=== PATIENT | female | born 1950 | race Caucasian/White ===

== ENCOUNTER 2016-08-08 08:35 | Outpatient (CLI) | payer MEDICARE, OTHER | END 2016-08-08 08:36 | disposition home or self-care (01) | DX: M79.652 Pain in left thigh (principal); M25.562 Pain in left knee ==

== ENCOUNTER 2017-03-05 10:09 | Outpatient (CLI) | payer MEDICARE, OTHER ==
--- NOTE | 2017-03-06 14:34 | Mammography Report ---
DIGITAL SCREENING MAMMOGRAM: 03/05/2017 CLINICAL INDICATION: A 66-year-old, for screening. COMPARISON: 09/2015, 08/2014, 01/2013, 11/2011, 11/2010, 08/2009. TECHNIQUE: Routine CC and MLO projections were obtained of the breasts. FINDINGS: The breasts again demonstrate scattered fibroglandular densities bilaterally. Punctate, ty pically benign calcifications are present. No suspicious masses, clustered microcalcifications, or re gions of architectural distortion are identified. IMPRESSION: BENIGN FINDINGS. RECOMMENDATION: ROUTINE ANNUAL SCREENING UNLESS OTHERWISE CLINICALLY INDICATED. BIRADS CATEGORY 2-BENIGN FINDINGS. STANDARD QUALIFYING STATEMENTS 1. This examination was reviewed with the aid of Computer-Aided Detection (CAD). 2. A negative or benign imaging report should not delay biopsy if clinically suspicious findings are present. Consider surgical consultation if warranted. More than 5% of cancers are not identified by i maging. 3. Dense breasts may obscure an underlying neoplasm. JOB #: [id number] EXT JOB #:[id number]
== END 2017-03-05 10:10 | disposition home or self-care (01) ==
LOC: DI 10:09
PROVIDERS: ATTEND Internal Medicine
DX: Z12.31 Encounter for screening mammogram for malignant neoplasm of breast (principal)
CPT/HCPCS: 77067

== ENCOUNTER 2017-12-05 09:47 | Outpatient (CLI) | payer MEDICARE, OTHER ==
[2017-12-05] MEDS ORDERED: IOPAMIDOL-300 100 ML VIAL ONE (10:16)
[2017-12-05] MEDS ORDERED: IOPAMIDOL-300 50 ML VIAL ONE (10:16)
[2017-12-05 10:27] LABS: CREATININE 0.9 mg/dL (0.4-1.0)
[2017-12-05] MEDS ORDERED: IOPAMIDOL-300 100 ML VIAL IVP ONE (15:17)
[2017-12-05] MEDS ORDERED: IOPAMIDOL-300 50 ML VIAL PO ONE (15:17)
--- NOTE | 2017-12-05 15:47 | CT Report ---
Procedure Date: 12/05/2017 Accession Number: [id number] / [id number] Procedure: CT - Abdomen/Pelvis W/ CPT Code: FULL RESULT: EXAM: CT ABDOMEN AND PELVIS EXAM DATE: 12/05/2017 11:24 AM. CLINICAL HISTORY: ABDOMINAL WALL HERNIA. COMPARISONS: 04/09/2012. TECHNIQUE: Routine helical CT imaging was performed through the abdomen and pelvis. IV contrast: ISOVUE 300 100mL. Enteric contrast: No. Reconstructions: Coronal and sagittal. In accordance with CT protocol optimization, one or more of the following dose reduction techniques were utilized for this exam: automated exposure control, adjustment of mA and/or KV based on patient size, or use of iterative reconstructive technique. FINDINGS: Lung Bases: Unremarkable. Liver: Normal. No masses. Gallbladder/Bile Ducts: Unremarkable. Spleen: Normal. Pancreas: Normal. Adrenal Glands: Normal. Kidneys: No hydronephrosis. Tiny hypoattenuating subcentimeter lesion in the right lower pole which is too small to characterize, but likely represents a cyst. Peritoneal Cavity/Bowel: Bowel has normal caliber. There is diverticulosis of the sigmoid colon without evidence of diverticulitis. The appendix is not visualized. Pelvic Organs: Normal. The bladder and visualized pelvic organs are within normal limits. Vasculature: No aneurysms or other significant abnormality. Bones: No significant abnormality. Other: There is a tiny fat-containing umbilical hernia which is unchanged from the prior exam. No bowel herniation is seen. IMPRESSION: 1. No evidence of acute abdominal or pelvic process. 2. Very tiny fat-containing umbilical hernia unchanged from 2012. No bowel involvement. 3. Sigmoid colonic diverticulosis without evidence of diverticulitis. RADIA
== END 2017-12-05 09:48 | disposition home or self-care (01) ==
LOC: LAB 09:47 → DI 09:48
PROVIDERS: ATTEND Surgery
DX: K42.9 Umbilical hernia without obstruction or gangrene (principal); K57.30 Diverticulosis of large intestine without perforation or abscess without bleeding
CPT/HCPCS: 36415; 74177; 82565; 84520; Q9967

== ENCOUNTER 2018-10-20 09:47 | Outpatient (CLI) | payer MEDICARE, OTHER ==
--- NOTE | 2018-10-20 11:16 | Mammography Report ---
Reason: SCREENING MAMMO Procedure Date: 10/20/2018 Accession Number: [id number] / [id number] Procedure: VANESSA - Screening Mammo w/Abdulkadir CPT Code: FULL RESULT: EXAM: Screening Mammo w/Abdulkadir DATE: 10/20/2018 10:19 AM CLINICAL HISTORY: Routine screening TECHNIQUE: (B) - Bilateral CC and MLO views were obtained. COMPARISON: 03/05/2017, 10/20/2015, 08/26/2014 and 02/19/2013 PARENCHYMAL PATTERN: (F) - The breasts demonstrate diffuse fatty replacement bilaterally. FINDINGS: No significant interval change. There are no suspicious masses, calcifications, or areas of distortion. A few benign-appearing calcifications are present. IMPRESSION: Negative examination. BI-RADS category 1. RECOMMENDATION: (ANNUAL) - Recommend routine annual screening mammography. BI-RADS CATEGORY: (1) - Negative. STANDARD QUALIFYING STATEMENTS: 1. This examination was not reviewed with the aid of Computer-Aided Detection (CAD). 2. A negative or benign imaging report should not preclude biopsy if clinically suspicious findings are present. 3. Dense breasts may obscure an underlying neoplasm. 4. This examination was reviewed with the aid of 3D breast imaging (tomosynthesis).
== END 2018-10-20 09:48 | disposition home or self-care (01) ==
LOC: DI 09:47
DX: Z12.31 Encounter for screening mammogram for malignant neoplasm of breast (principal)
CPT/HCPCS: 77063; 77067

== ENCOUNTER 2019-04-03 10:02 | Outpatient (CLI) | payer MEDICARE, OTHER ==
[2019-04-03 10:18] LABS: BASOPHILS # (AUTO) 0.1 10^3/uL (0.0-0.1); BASOPHILS % (AUTO) 1.3 %; EOSINOPHILS # (AUTO) 0.3 10^3/uL (0.0-0.7); HGB - HEMOGLOBIN 13.2 g/dL (12.0-16.0); LYMPHOCYTES # (AUTO) 2.5 10^3/uL (1.5-3.5); LYMPHOCYTES % (AUTO) 34.6 %; MEAN CORPUSCULAR HEMOGLOBIN 29.7 pg (27.0-31.0); MEAN PLATELET VOLUME 9.5 fL (7.9-10.8); MONOCYTES # (AUTO) 0.4 10^3/uL (0.0-1.0); NEUTROPHILS # (AUTO) 3.9 10^3/uL (1.5-6.6); PLT - PLATELET COUNT 275 10^3/uL (130-450); RED BLOOD COUNT 4.44 10^6/uL (4.20-5.40); RED CELL DISTRIBUTION WIDTH 15.4 % (12.0-15.0); WHITE BLOOD COUNT 7.2 x10^3/uL (4.8-10.8)
[2019-04-03 10:36] LABS: ALBUMIN 4.1 g/dL (3.2-5.5); ALBUMIN/GLOBULIN RATIO 1.2 (1.0-2.2); ALKALINE PHOSPHATASE 76 IU/L (42-121); ALT ALANINE AMINOTRANSFERASE 22 IU/L (10-60); AST ASPARTATE AMINOTRANSFERASE 25 IU/L (10-42); BILIRUBIN,TOTAL 0.6 mg/dL (0.2-1.0); BUN - BLOOD UREA NITROGEN 19 mg/dL (6-20); CALCIUM 9.1 mg/dL (8.5-10.3); CARBON DIOXIDE - CO2 29 mmol/L (21-32); CHLORIDE 102 mmol/L (101-111); CHOL/HDL RATIO 3.5 (<4.4); CHOLESTEROL 194 mg/dL; CREATININE 0.9 mg/dL (0.4-1.0); CRP HIGH SENSITIVITY 9.5 mg/L; GFR - MDRD 62 (>89); GLUCOSE 99 mg/dL (70-100); HDL CHOLESTEROL 55 mg/dL; LDL CHOLESTEROL,CALCULATED 126 mg/dL; LDL/HDL RATIO 2.3 (<4.4); SODIUM 138 mmol/L (135-145); TOTAL PROTEIN 7.6 g/dL (6.7-8.2); VLDL CHOLESTEROL 13 mg/dL
[2019-04-03 11:08] LABS: BILIRUBIN,URINE NEGATIVE (NEGATIVE); GLUCOSE, URINE (UA) NEGATIVE (NEGATIVE); KETONES,URINE (UA) NEGATIVE (NEGATIVE); LEUKOCYTE ESTERASE, URINE NEGATIVE (NEGATIVE); NITRITE,URINE NEGATIVE (NEGATIVE); OCCULT BLOOD,URINE NEGATIVE (NEGATIVE); PROTEIN,URINE NEGATIVE (NEGATIVE); UROBILINOGEN,URINE 0.2 (NORMAL) E.U./dL (NORMAL)
[2019-04-03 11:13] LABS: CLARITY,URINE CLEAR (CLEAR)
== END 2019-04-03 10:03 | disposition home or self-care (01) ==
LOC: LAB 10:02
PROVIDERS: ATTEND Internal Medicine
DX: Z13.6 Encounter for screening for cardiovascular disorders (principal); Z79.899 Other long term (current) drug therapy; R31.9 Hematuria, unspecified; E78.5 Hyperlipidemia, unspecified; M81.0 Age-related osteoporosis without current pathological fracture
CPT/HCPCS: 36415; 80053; 80061; 81001; 81003; 82306; 83721; 84443; 85025; 86141; 87086

== ENCOUNTER 2020-12-15 09:31 | Outpatient (CLI) | payer MEDICARE, OTHER ==
--- NOTE | 2020-12-16 13:38 | Mammography Report ---
BILATERAL DIGITAL SCREENING MAMMOGRAM 3D/2D: 12/15/2020 CLINICAL: Routine screening. Comparison is made to exams dated: 10/20/2018 mammogram, 03/05/2017 mammogram, 10/20/2015 mammogram, mammogram, 12/04/2011 mammogram, and 12/11/2010 mammogram - [facility]. The tissue of both breasts is predominantly fatty. No significant masses, calcifications, or other findings are seen in either breast. There has been no significant interval change. IMPRESSION: NEGATIVE There is no mammographic evidence of malignancy. A 1 year screening mammogram is recommended. This exam was interpreted at Station ID: [id number]. NOTE: For mammograms, a report in lay terms will be sent to the patient. Approximately 15% of breast malignancies will not be visualized mammographically. In the management of a palpable breast mass, a negative mammogram must not discourage biopsy of a clinically suspicious lesion. Electronically Signed By: Seymour bush/nai:12/15/2020 15:16:12 ACR BI-RADS Category 1: Negative 3341F PARENCHYMAL PATTERN: (F) - The breast(s) demonstrate(s) diffuse fatty replacement. BI-RADS CATEGORY: (1) - 1 RECOMMENDATION: (ANNUAL) - Recommend routine annual screening mammography. [id number] 1 year screening LATERALITY: (B)
== END 2020-12-15 09:32 | disposition home or self-care (01) ==
LOC: DI 09:31
DX: Z12.31 Encounter for screening mammogram for malignant neoplasm of breast (principal)

== ENCOUNTER 2021-07-05 12:49 | Outpatient (CLI) | payer MEDICARE, OTHER ==
[2021-07-05 13:42] LABS: MAGNESIUM 2.5 mg/dL (1.7-2.8)
[2021-07-05 13:47] LABS: ESTIMATED AVERAGE GLUCOSE 120 mg/dL (70-100); HEMOGLOBIN A1c% 5.8 % (4.27-6.07)
[2021-07-05 14:02] LABS: CALCIUM 9.1 mg/dL (8.5-10.3); POTASSIUM 3.8 mmol/L (3.5-5.0)
== END 2021-07-05 12:50 | disposition home or self-care (01) ==
LOC: LAB.R 12:49
PROVIDERS: ATTEND Internal Medicine
DX: K52.831 Collagenous colitis (principal); R25.2 Cramp and spasm
CPT/HCPCS: 80048; 83036; 83735

== ENCOUNTER 2021-10-09 08:00 | Outpatient (CLI) | payer MEDICARE, OTHER ==
--- NOTE | 2021-10-10 16:53 | XRAY Report ---
PROCEDURE: Foot 2 View LT INDICATIONS: SPRAIN OF L FOOT TECHNIQUE: 2 views of the foot were acquired. COMPARISON: None FINDINGS: Bones: No fractures or dislocations. Osteoarthritic changes are noted in midfoot and forefoot joint s. No suspicious bony lesions. Soft tissues: No tibiotalar joint effusion. Achilles tendon appears normal. IMPRESSION: Midfoot and forefoot joint osteoarthritis. No acute fracture or dislocation. Reviewed by: Reid Cuellar MD on 10/10/2021 4:51 PM PDT Approved by: Reid Cuellar MD on 10/10/2021 4:51 PM PDT Station ID: [id number]
== END 2021-10-09 23:59 | disposition home or self-care (01) ==
LOC: DI.N 08:00
PROVIDERS: ATTEND Nurse Practitioner
DX: M19.072 Primary osteoarthritis, left ankle and foot (principal)

== ENCOUNTER 2022-03-20 08:00 | Outpatient (CLI) | payer MEDICARE, OTHER ==
[2022-03-20 16:02] LABS: BASOPHILS # (AUTO) 0.1 10^3/uL (0.0-0.1); BASOPHILS % (AUTO) 0.9 %; EOSINOPHILS # (AUTO) 0.2 10^3/uL (0.0-0.7); HCT - HEMATOCRIT 41.4 % (37.0-47.0); HGB - HEMOGLOBIN 13.1 g/dL (12.0-16.0); LYMPHOCYTES # (AUTO) 2.9 10^3/uL (1.5-3.5); LYMPHOCYTES % (AUTO) 36.8 %; MEAN CORPUSCULAR HEMOGLOBIN 28.4 pg (27.0-31.0); MEAN CORPUSCULAR HGB CONC 31.6 g/dL (32.0-36.0); MEAN CORPUSCULAR VOLUME 89.8 fL (81.0-99.0); MEAN PLATELET VOLUME 10.3 fL (7.9-10.8); MONOCYTES # (AUTO) 0.5 10^3/uL (0.0-1.0); MONOCYTES % (AUTO) 6.3 %; NEUTROPHILS # (AUTO) 4.2 10^3/uL (1.5-6.6); NEUTROPHILS % (AUTO) 53.7 %; PLT - PLATELET COUNT 276 10^3/uL (130-450); RED BLOOD COUNT 4.61 10^6/uL (4.20-5.40); RED CELL DISTRIBUTION WIDTH 15.5 % (12.0-15.0); WHITE BLOOD COUNT 7.9 x10^3/uL (4.8-10.8)
[2022-03-20 16:13] LABS: ALBUMIN 3.8 g/dL (3.2-5.5); ALBUMIN/GLOBULIN RATIO 1.1 (1.0-2.2); ALKALINE PHOSPHATASE 73 IU/L (42-121); ALT ALANINE AMINOTRANSFERASE 17 IU/L (10-60); AST ASPARTATE AMINOTRANSFERASE 17 IU/L (10-42); BILIRUBIN,TOTAL 0.6 mg/dL (0.2-1.0); BUN - BLOOD UREA NITROGEN 22 mg/dL (6-20); CALCIUM 9.3 mg/dL (8.5-10.3); CARBON DIOXIDE - CO2 30 mmol/L (21-32); CHLORIDE 101 mmol/L (101-111); CHOL/HDL RATIO 3.4 (<4.4); CHOLESTEROL 165 mg/dL; CREATININE 0.8 mg/dL (0.4-1.0); CRP HIGH SENSITIVITY 4.7 mg/L; GFR - MDRD 71 (>89); GLUCOSE 82 mg/dL (70-100); HDL CHOLESTEROL 49 mg/dL; LDL CHOLESTEROL,CALCULATED 101 mg/dL; LDL/HDL RATIO 2.1 (<4.4); POTASSIUM 4.1 mmol/L (3.5-5.0); SODIUM 138 mmol/L (135-145); TOTAL PROTEIN 7.4 g/dL (6.7-8.2); TRIGLYCERIDES 77 mg/dL; VLDL CHOLESTEROL 15 mg/dL
[2022-03-20 16:22] LABS: THYROID STIMULATING HORMONE 4.53 uIU/mL (0.34-5.60)
== END 2022-03-20 23:59 | disposition home or self-care (01) ==
LOC: LAB.R 08:00
PROVIDERS: ATTEND Internal Medicine
DX: Z00.00 Encounter for general adult medical examination without abnormal findings (principal); K52.831 Collagenous colitis; M79.673 Pain in unspecified foot; E78.5 Hyperlipidemia, unspecified; M81.0 Age-related osteoporosis without current pathological fracture; J30.2 Other seasonal allergic rhinitis; G47.00 Insomnia, unspecified
CPT/HCPCS: 80053; 80061; 82306; 82607; 83721; 84443; 85025; 86141

== ENCOUNTER 2023-04-02 08:20 | Outpatient (CLI) | payer MEDICARE, OTHER ==
--- NOTE | 2023-04-03 09:23 | Mammography Report ---
BILATERAL DIGITAL SCREENING MAMMOGRAM 3D/2D: 04/02/2023 CLINICAL: Routine screening. Comparison is made to exams dated: 12/15/2020 mammogram, 03/05/2017 mammogram, and 10/20/2018 mammogram - [facility]. Both breasts are almost entirely fatty (category a/<25% glandular tissue). No significant masses, calcifications, or other findings are seen in either breast. There has been no significant interval change. IMPRESSION: NEGATIVE There is no mammographic evidence of malignancy. A 1 year screening mammogram is recommended. Based on the Tyrer Cuzick model (a risk assessment model) the patients lifetime risk is 2.1% and her 10 year risk is 1.4%. According to the ACR, ACS, and NCCN guidelines, an annual breast MRI exam emilia g with mammogram is recommended if the patients lifetime risk is 20% or greater. This exam was interpreted at Station ID: [id number]. NOTE: For mammograms, a report in lay terms will be sent to the patient. Approximately 15% of breast malignancies will not be visualized mammographically. In the management of a palpable breast mass, a negative mammogram must not discourage biopsy of a clinically suspicious lesion. Electronically Signed By: Anuj garcia/nai:04/02/2023 12:21:29 letter sent: No_Letter ACR BI-RADS Category 1: Negative 3341F PARENCHYMAL PATTERN: (F) - The breast(s) demonstrate(s) diffuse fatty replacement. BI-RADS CATEGORY: (1) - 1 Mammogram [id number] 1 year screening LATERALITY: (B)
== END 2023-04-02 08:21 | disposition home or self-care (01) ==
LOC: DI 08:20
PROVIDERS: ATTEND Internal Medicine
DX: Z12.31 Encounter for screening mammogram for malignant neoplasm of breast (principal)

== ENCOUNTER 2023-04-02 08:30 | Outpatient (CLI) | payer MEDICARE, OTHER ==
--- NOTE | 2023-04-02 13:58 | XRAY Report ---
PROCEDURE: Chest 2 View X-Ray INDICATIONS: ABNORMAL FINDING OF LUNG FIELD TECHNIQUE: 2 views of the chest were acquired. COMPARISON: None. FINDINGS: Surgical changes and devices: None. Lungs and pleura: No pleural effusions or pneumothorax. Lungs are clear. Mediastinum: Mediastinal contours appear normal. Heart size is enlarged. Bones and chest wall: No suspicious bony lesions. Overlying soft tissues appear unremarkable. IMPRESSION: No acute cardiopulmonary process. Reviewed by: Faviola Albarran MD on 04/02/2023 1:57 PM [facility] Approved by: Faviola Albarran MD on 04/02/2023 1:57 PM [facility] Station ID: [id number]
== END 2023-04-02 08:31 | disposition home or self-care (01) ==
LOC: DI 08:30
PROVIDERS: ATTEND Internal Medicine
DX: R91.8 Other nonspecific abnormal finding of lung field (principal)

== ENCOUNTER 2023-07-17 09:47 | Outpatient (CLI) | payer MEDICARE, OTHER ==
--- NOTE | 2023-07-17 11:28 | DEXA Report ---
PROCEDURE: Dexa Spine and/or Hip INDICATIONS: OSTEOPOROSIS TECHNIQUE: Dual energy x-ray absorptiometry (DXA) was performed on a [employer] System. Regions measur ed are the AP Spine, femoral neck, and if needed forearm. COMPARISON: None FINDINGS: Lumbar Spine: Bone Mineral Density: 1.106 g/cm/cm,T score: -0.6. Left Femoral Neck: Bone Mineral Density: 1.019 g/cm/cm, T score: -0.1. Left Hip: Bone Mineral Density: 0.985 g/cm/cm,T score: -0.2. (T score greater or equal to -1.0: NORMAL) (T score from -1.1 to -2.4: OSTEOPENIA) (T score less than or equal to -2.5 to: OSTEOPOROSIS) Impression: By WHO criteria, this patient has normal bone density. Patients with diagnosis of osteoporosis or osteopenia should have regular bone mineral density assess ment. For those eligible for Medicare, routine testing is allowed once every 2 years. Testing frequ ency can be increased for patients who have rapidly progressing disease or for those who are receivin g medical therapy to restore bone mass. Reviewed by: Faviola Albarran MD on 07/17/2023 11:27 AM PDT Approved by: Faviola Albarran MD on 07/17/2023 11:27 AM PDT Station ID: [id number]
== END 2023-07-17 09:48 | disposition home or self-care (01) ==
LOC: DI 09:47
PROVIDERS: ATTEND Internal Medicine
DX: M81.0 Age-related osteoporosis without current pathological fracture (principal)

== ENCOUNTER 2023-08-02 12:11 | Outpatient (CLI) | payer MEDICARE, OTHER ==
--- NOTE | 2023-08-02 12:44 | XRAY Report ---
PROCEDURE: Chest 2V INDICATIONS: COUGH TECHNIQUE: 2 views of the chest were acquired. COMPARISON: 04/02/2023. FINDINGS: Surgical changes and devices: None. Lungs and pleura: No pleural effusions or pneumothorax. Small focal pneumonia, right upper lobe. Sma ll focal pneumonia, left lateral lung base. Mediastinum: Mediastinal contours appear normal. Heart size is normal. Bones and chest wall: No suspicious bony lesions. Overlying soft tissues appear unremarkable. IMPRESSION: Small bilateral pneumonias. Progress films are recommended until clear. Reviewed by: Shaan Worthy MD on 08/02/2023 12:43 PM PDT Approved by: Shaan Worthy MD on 08/02/2023 12:43 PM PDT Station ID: [id number]
== END 2023-08-02 12:12 | disposition home or self-care (01) ==
LOC: DI 12:11
PROVIDERS: ATTEND Internal Medicine
DX: J18.9 Pneumonia, unspecified organism (principal)

== ENCOUNTER 2023-09-19 09:49 | Outpatient (CLI) | payer MEDICARE, OTHER ==
--- NOTE | 2023-09-19 20:01 | XRAY Report ---
PROCEDURE: Chest 2V INDICATIONS: COUGH TECHNIQUE: 2 views of the chest were acquired. COMPARISON: Chest radiograph 08/02/2023. FINDINGS: Surgical changes and devices: None. Lungs and pleura: No pleural effusions or pneumothorax. Previously seen right upper lobe opacities have resolved. Left basilar opacities have significantly decreased with possible minimal residual co nsolidation versus atelectasis or scarring. Mediastinum: Mediastinal contours appear normal. Heart size is normal. Bones and chest wall: No suspicious bony lesions. Overlying soft tissues appear unremarkable. IMPRESSION: Complete resolution of prior right upper lobe opacities and near complete resolution of left basilar opacities. No new cardiopulmonary abnormality. Reviewed by: Anuj Link MD on 09/19/2023 8:00 PM PDT Approved by: Anuj Link MD on 09/19/2023 8:00 PM PDT Station ID: [id number]
== END 2023-09-19 09:50 | disposition home or self-care (01) ==
LOC: DI 09:49
PROVIDERS: ATTEND Internal Medicine
DX: R05.9 Cough, unspecified (principal)

== ENCOUNTER 2023-12-04 10:11 | Outpatient (CLI) | payer MEDICARE, OTHER ==
--- NOTE | 2023-12-04 19:43 | XRAY Report ---
PROCEDURE: Hip w/Pelvis 2-3V LT INDICATIONS: MYALGIA TECHNIQUE: 2 views of the hip were acquired. COMPARISON: None. FINDINGS: Bones: No fractures or dislocations. No suspicious bony lesions. Soft tissues: No suspicious soft tissue calcifications or masses. IMPRESSION: Moderate bilateral hip joint space narrowing without osseous remodeling Reviewed by: Kirt Salmeron MD on 12/04/2023 6:42 PM [facility] Approved by: Kirt Salmeron MD on 12/04/2023 6:42 PM [facility] Station ID: [id number]
== END 2023-12-04 10:12 | disposition home or self-care (01) ==
LOC: DI 10:11
PROVIDERS: ATTEND Internal Medicine
DX: M79.10 Myalgia, unspecified site (principal); M25.852 Other specified joint disorders, left hip; M25.851 Other specified joint disorders, right hip